=== PATIENT | male | born 1990 | race Two or more races ===

== ENCOUNTER 2017-04-02 05:44 | Day surgery (SDC) | payer BC ==
[2017-04-02] VITALS (10 sets, daily range): BP systolic 129–137; BP diastolic 73–90
[~2017-04-02] VITALS: Ht 172.7 cm; Wt 74.8 kg
[~2017-04-02 05:44] MED LIST: NKM
[2017-04-02] MEDS ORDERED: LR 1000ml 1,000 ML IVLG SCH (06:52)
--- NOTE | 2017-04-02 06:52 | Anethesia Preoperative Eval ---
Anesthesia Pre-op PMH/ROS General Date of Evaluation: April 02, 2017 Time of Evaluation: 07:41 Anesthesiologist: Alysia ASA Score: ASA 1 Mallampati Score Class I : Soft palate, uvula, fauces, pillars visible Class II: Soft palate, uvula, fauces visible Class III: Soft palate, base of uvula visible Class IV: Only hard plate visible Mallampati Classification: Class I Surgeon: Savanahori Diagnosis: Back Pain Surgical Procedure: L L4-5 Microdiscetomy, Discectomy Anesthesia History: none Family History: no anesthesia problems Allergies: Coded Allergies: No Known Allergies (Unverified , 04/01/17) Medications: see eMAR Past Medical History Pulmonary: Reports: other - Hx TB 8yo Gastrointestinal/Genitourinary: Reports: GERD Anesthesia Pre-op Phys. Exam Physician Exam Last Vital Signs Date Time Temp Pulse Resp B/P Pulse Ox O2 Delivery O2 Flow Rate FiO2 04/02/17 06:09 98.7 69 18 129/73 98 Room Air Constitutional: NAD Neurologic: CN 2-12 intact Cardiovascular: RRR Respiratory: CTA Gastrointestinal: S/NT/ND Airway Exam Mallampati Score: Class I MO: full ROM: full Teeth: intact Anesthesia Pre-op A/P Risk Assessment & Plan Assessment: ASA 1 Plan: GA, Glidescope, BIS Status Change Before Surgery: No Pre-Antibiotics Dru Grams Ancef IV Given Within 1 Hr of Incision: Yes Time Given: 08:06 Everett Hatfield MD April 02, 2017 06:52
--- NOTE | 2017-04-02 06:55 | Immediate Post-Op Evaluation ---
Immediate Post-Op Evalulation Immediate Post-Op Evalulation Procedure: L L4-5 Microdiscetomy, Discectomy Date of Evaluation: April 02, 2017 Time of Evaluation: 11:29 IV Fluids: 1000 LR Blood Products: 0 Estimated Blood Loss: 25 Urinary Output: 300 Blood Pressure Systolic: 136 Blood Pressure Diastolic: 83 Pulse Rate: 97 Respiratory Rate: 16 O2 Sat by Pulse Oximetry: 100 Temperature (Fahrenheit): 97.6 Pain Score (1-10): 3 Nausea: No Vomiting: No Complications 0 Patient Status: awake, reacts, patent, extubated, none Hydration Status: adequate Dru Grams Ancef IV Given Within 1 Hr of Incision: Yes Time Given: 08:06 Everett Hatfield MD April 02, 2017 06:55
[2017-04-02] MEDS ORDERED: Midazolam 2mg/2ml Inj IVP PRN (07:00)
[2017-04-02] MEDS ORDERED: Ketorolac 30mg Inj IV PRN (07:00)
[2017-04-02] MEDS ORDERED: Norco 7.5mg/325mg tab ORAL PRN ×2 (07:00→11:15)
[2017-04-02] MEDS ORDERED: Metoclopramide 10mg/2ml Inj IVP PRN (07:00)
[2017-04-02] MEDS ORDERED: Atropine Inj 1mg/10ml Syr IV PRN (07:00)
[2017-04-02] MEDS ORDERED: Hydromorphone 0.5mg/0.5ml inj IVP PRN (07:00)
[2017-04-02] MEDS ORDERED: DiphenhydrAMINE 50mg/ml Inj IVP PRN (07:00)
[2017-04-02] MEDS ORDERED: Meperidine 25mg/0.5ml Inj IV PRN (07:00)
[2017-04-02] MEDS ORDERED: LORazepam Inj 2mg/ml 1ml IV PRN (07:00)
[2017-04-02] MEDS ORDERED: Norco 5mg/325mg tab ORAL PRN ×2 (07:00→11:15)
[2017-04-02] MEDS ORDERED: Ketorolac 60mg Inj IV PRN (07:00)
[2017-04-02] MEDS ORDERED: fentaNYL 100 mcg/2 mL IV PRN (07:00)
[2017-04-02] MEDS ORDERED: Oxycodone/Acetaminophen 5-325 ORAL PRN (07:00)
[2017-04-02] MEDS ORDERED: Isovue-M 300 15ml INJ ONE (07:16)
[2017-04-02] MEDS ORDERED: Bupivacaine 0.25% Inj 30ml INJ ONE (07:16)
[2017-04-02] MEDS ORDERED: Thrombin 5000 units spray kit TOPIC ONE (07:17)
[2017-04-02] MEDS ORDERED: Bacitracin 50000 Units Vial ONE (07:17)
[2017-04-02] MEDS ORDERED: Gelfoam Absorbable 1gm powder pkt TOPIC ONE (07:17)
[2017-04-02] MEDS: Thrombin 5000 units TOPIC ONE ×2 (07:25→09:37)
[2017-04-02] MEDS ORDERED: fentaNYL 100 mcg/2 mL IV ONE (07:25)
[2017-04-02] MEDS ORDERED: Propofol 10mg/ml 100ml btl IV ONE (07:30)
[2017-04-02] MEDS ORDERED: Glycopyrrolate 0.2mg/ml 1ml Vial ONE (07:45)
[2017-04-02] MEDS ORDERED: LR 1000ml ONE (07:45)
[2017-04-02] MEDS ORDERED: Neostigmine 1mg/ml 10ml Inj ONE (07:45)
[2017-04-02] MEDS ORDERED: fentaNYL 250mcg/5ml ONE (07:45)
[2017-04-02] MEDS ORDERED: Sterile Water Irrig 1000ml IRRIG ONE (07:45)
[2017-04-02] MEDS ORDERED: Lidocaine 1% Plain 30 ml INJ ONE (07:45)
[2017-04-02] MEDS ORDERED: Lidocaine 1% MPF 10mg/ml 5ml ONE (07:45)
[2017-04-02] MEDS ORDERED: NS Irrig 1000ml ONE (07:45)
[2017-04-02] MEDS ORDERED: Ketamine 500mg Inj ONE (07:45)
[2017-04-02] MEDS ORDERED: Dexamethasone 4mg/ml vial ONE (07:45)
[2017-04-02] MEDS ORDERED: Acetaminophen (Non formulary) 100 ML IV ONE (08:00)
--- NOTE | 2017-04-02 08:00 | Pre-Procedure Note/Attestation ---
Pre-Procedure Note/Attestation Complete Prior to Procedure Planned Procedure: left Procedure Narrative: Microdecompression microdiscectomy L4-5 Left Indications for Procedure Pre-Operative Diagnosis: Lumbar disc hernia and stenosis Attestation I attest that I discussed the nature of the procedure; its benefits; risks and complications; and alternatives (and the risks and benefits of such alternatives ), prior to the procedure, with the patient (or the patient's legal b2b sales representative). I attest that, if there was a reasonable possibility of needing a blood transfusion, the patient (or the patient's legal b2b sales representative) was given the [facility] standardized written summary, pursuant to the Raul Rubia Blood Safety Act ([place] Health and Safety Code # 1645, as amended). I attest that I re-evaluated the patient just prior to the surgery and that there has been no change in the patient's H&P, except as documented below: DARIA LANE April 02, 2017 08:00
--- NOTE | 2017-04-02 09:56 | 48 Hour Post Anesthesia Eval ---
Post Anesthesia Evaluation Procedure: L L4-5 Microdiscetomy, Discectomy Date of Evaluation: April 02, 2017 Time of Evaluation: 13:41 Blood Pressure Systolic: 132 0: 81 Pulse Rate: 73 Respiratory Rate: 18 Temperature (Fahrenheit): 98.2 O2 Sat by Pulse Oximetry: 100 Airway: patent Nausea: No Vomiting: No Pain Intensity: 2 Hydration Status: adequate Cardiopulmonary Status: Stable Mental Status/LOC: patient returned to baseline Follow-up Care/Observations: 0 Post-Anesthesia Complications: 0 Follow-up care needed: ready to discharge Everett Hatfield MD April 02, 2017 09:56
--- NOTE | 2017-04-02 11:13 | Brief Operative Note ---
Immediate Post Operative Note Operative Note Chief Complaint: Left leg pain radiculopathy Pre-op Diagnosis: L4-5 Lumbar disc hernia and stenosis Procedure: Left L4-5 decompression and discectomy Post-op Diagnosis: Same Surgeon: Luz Maria Lane Logistic Specialist: Mu Dick Anesthesiologist: Alysia Anesthesia: general Specimen: none Complications: none Condition: stable Estimated Blood Loss: minimal Drains: none Implant(s) used?: No DARIA LANE April 02, 2017 11:13
[2017-04-02] MEDS ORDERED: Morphine Sulfate 2mg/ml Inj SUBQ PRN (11:15)
[2017-04-02] MEDS ORDERED: D5 1/2NS w/KCl 20mEq 1,000 ML IV SCH (11:15)
[2017-04-02] MEDS ORDERED: Morphine Sulfate 4mg/ml Inj SUBQ PRN (11:15)
[2017-04-02] MEDS ORDERED: ceFAZolin sod 1 GM in D5W 55 ML IV SCH (14:00)
--- NOTE | 2017-04-02 16:21 | Diagnostic Imaging Report ---
Indication: PAIN Technique: Digital intraoperative images Comparison: None Findings: Intraoperative images demonstrate a surgical tool posterior to what is presumably L5. Subsequent images documents contrast injection into a small bore epidural catheter. Impression: Intraoperative imaging, as described
[2017-04-02] MEDS ORDERED: Docusate 100mg cap ORAL SCH (18:00)
--- NOTE | 2017-04-03 04:15 | Operative Note - Dictated ---
DATE OF OPERATION: 04/02/2017 PREOPERATIVE DIAGNOSIS: L4-L5 disk herniation. POSTOPERATIVE DIAGNOSIS: L4-L5 disk herniation. PROCEDURES: 1. Left medial facetectomy L4-L5. 2. Left L4-L5 discectomy. 3. Left L5 foraminotomy. 4. Left L5 neurolysis. 5. Left L4-L5 discectomy and osteotomy of the posterior body. The disc underneath was bony and very hard and it was attached undersurface of the dura. 6. Transpedicular decompression of the nerve into the foramen of L5 on the left side. 7. Epidurogram using Isovue and epidural catheter. 8. Epidural block using 100 mcg of Fentanyl and 0.25% Marcaine 4 mL. 9. Use of intraoperative microscope. 10. Microscopic plastic closure of the wound 3 cm in length. 11. Use of intraoperative fluoroscopy for two hours. 12. Interpretation of x-ray of the lumbar spine x4. 13. SSEP, upper and lower extremities for two hours. 14. Motor-evoked potential upper and lower extremities for two hours. 15. Interpretation of MRI of the lumbar spine intraoperatively. 16. Left L5 superior laminotomy. SURGEON: Donny Manuel M.D. CONGRESSIONAL DISTRICT AIDE SURGEON: Dr. Dick. ANESTHESIOLOGIST: Everett Hatfield M.D. COMPLICATIONS: None. CONDITION: Transfer to recovery room under stable condition. INDICATION FOR PROCEDURE: The patient is a 26-year-old gentleman with severe left lower extremity pain. The MRI demonstrated a large disk herniation at L4-L5 with left-sided stenosis. The patient was offered surgery after conservative management failed. The risks and benefits of surgery including, but not limited to infection, bleeding, stroke, , damage to surrounding structures, need for future operative procedures, no improvement of symptoms, worsening of symptoms, other unfortunate risks have been explained to the patient including risk of and risk of recurrence and need for fusion. The patient signed the consent form and proceeded to surgery. DESCRIPTION OF PROCEDURE: After informed consent was obtained, the patient was taken to the operative room where he was placed under general anesthesia and intubation. The area of interest was shaved, prepped, and draped. We inserted a spinal needle at the L4-L5 level marking the location. The midline incision was injected with Marcaine with epinephrine 0.25%. It was taken down to the facia layer, which was opened to the left side of midline. The laminotomy of L4 and L5 were exposed. After confirming the position with fluoroscopy retractors were placed. A drill, osteotomy and Kerrison were used to perform laminectomy saving the facet and the pars as much as possible. Ligamentum flavum was elevated. The nerve and the dura was followed down and we performed laminotomy on top of L5. The nerve was under extensive pressure and we used Kerrison 1 and 2 to do foraminotomy and then used micro instruments to mobilize the nerve root. There was a very large disk herniation behind it. The take off the nerve was very superior. We removed part of the pedicle medially and superiorly to get more access to the disk space. After obtaining hemostasis and coagulating the vessels around the nerve, we were able to retract the nerve medially just slowly and then we were able to proceed with annulotomy. The majority of the disk that was underneath the nerve and dura were classified and was attached to the undersurface of the dura. We carefully dissected what we could and pushed down in to the disk space and removed the lateral aspect of the disk and went all the way to the midline as much as possible. There were still some bony prominence underneath the dura that again was attached to dura and we could not remove safely without damaging the nerve root and dura. The nerve was well decompressed as well as the dura. We extended the dissection by removing more of the central and inferior part of the ligamentum flavum and bone. At this point, hemostasis was obtained. SEEP demonstrated a good recovery of the L5 on the left side back to normal at this point. Hemostasis was obtained and epidural catheter was inserted and was sent superiorly. We confirmed the position using an epidurogram with Isovue and then injected Fentanyl with Marcaine. The catheter was removed. Hemostasis was obtained. The fascia was closed with 0 Vicryl sutures followed by interrupted 2-0 Vicryl suture for closure of the skin, and then we closed the subcutaneous tissue using 4-0 Monocryl and Dermabond was applied. The patient was transferred to recovery room under stable condition moving all of his extremities. The motor signals appear to be intact as well. I immediately discussed the case with the family. The blood loss was minimal. Tooraj Chiquita Manuel DR: LANDEN JOB#: [id number] CC:
== END 2017-04-02 14:00 | disposition home or self-care (01) ==
LOC: SUR 05:44
DX: M51.16 Intervertebral disc disorders with radiculopathy, lumbar region (principal); M48.06 Spinal stenosis, lumbar region; K21.9 Gastro-esophageal reflux disease without esophagitis; F17.200 Nicotine dependence, unspecified, uncomplicated; Z86.11 Personal history of tuberculosis
CPT/HCPCS: 63030; 72020; 76001; J0690; J1100; J2001; J2250; J2405; J2704; J2710; J3010; J3490; J7120; Q9967; 94003; 94150